=== PATIENT | male | born 1945 | race Caucasian/White ===

== ENCOUNTER 2017-04-19 17:44 | Emergency (ER) | payer MEDICARE ==
[2017-04-19 17:56] VITALS: BP 166/80; PULSE 64; RESP 17; TEMP 96.4
--- NOTE | 2017-04-19 18:06 | ED ---
General Adult HPI - General Chief complaint: ENT Stated complaint: fb in rt ear, from hearing aid Time Seen by Provider: 04/19/17 17:57 Source: patient, RN notes reviewed Mode of arrival: ambulatory Limitations: no limitations - History of Present Illness Initial comments: Patient is a 72-year-old male who presents emergency room today with a chief complaint of part of hearing aid stuck in his right ear canal. Patient does admit that this occurred 2 days ago and got his hearing aid. He does admit that he with the manager outpatient earlier today who was unable to remove it. Patient denies any other complaints or symptoms. Patient denies any recent fever , chills, shortness of breath, chest pain, back pain, abdominal pain, nausea or vomiting, numbness or tingling, dysuria or hematuria, constipation or diarrhea, headaches or visual changes, or any other complaints. - Related Data Home Medications Medication Instructions Recorded Confirmed Aspirin 81 mg PO DAILY 08/04/16 08/04/16 Calcium Polycarbophil [Fibercon] 625 mg PO BID 08/04/16 08/04/16 Losartan/Hydrochlorothiazide 1 tab PO DAILY 08/04/16 08/04/16 [Losartan-Hctz 100-12.5 mg Tab] Multivitamin [Men's Multi-Vitamin] 1 tab PO DAILY 08/04/16 08/04/16 [place]-3 Fatty Acids/Fish Oil [Fish 1 cap PO BID 08/04/16 08/04/16 Oil 1,000 mg Softgel] Simvastatin [Zocor] 80 mg PO HS 08/04/16 08/04/16 Allergies Allergy/AdvReac Type Severity Reaction Status Date / Time No Known Allergies Allergy Verified 08/04/16 07:37 Review of Systems ROS Statement: Those systems with pertinent positive or pertinent negative responses have been documented in the HPI. ROS Other: All systems not noted in ROS Statement are negative. Past Medical History Past Medical History: Hyperlipidemia, Hypertension History of Any Multi-Drug Resistant Organisms: None Reported Past Surgical History: Adenoidectomy, Heart Catheterization, Tonsillectomy Past Psychological History: No Psychological Hx Reported Smoking Status: Never smoker Past Alcohol Use History: Occasional Past Drug Use History: None Reported General Exam - General Exam Comments Initial Comments: General: The patient is awake and alert, in no distress, and does not appear acutely ill. Eye: Pupils are equal, round and reactive to light, extra-ocular movements are intact. No nystagmus. There is normal conjunctiva bilaterally. No signs of icterus. Ears, nose, mouth and throat: There are moist mucous membranes and no oral lesions. Unable to visualize the right TM due to foreign body Neck: The neck is supple, there is no tenderness or JVD. Cardiovascular: There is a regular rate and rhythm. No murmur, rub or gallop is appreciated. Respiratory: Lungs are clear to auscultation, respirations are non-labored, breath sounds are equal. No wheezes, stridor, rales, or rhonchi. Musculoskeletal: Normal ROM, no tenderness. Strength 5/5. Sensation intact. Pulses equal bilaterally 2+. Neurological: A&O x 3. CN II-XII intact, There are no obvious motor or sensory deficits. Coordination appears grossly intact. Speech is normal. Skin: Skin is warm and dry and no rashes or lesions are noted. Psychiatric: Cooperative, appropriate mood & affect, normal judgment. Limitations: no limitations Course Vital Signs 04/19/17 17:52 Temperature 96.4 F L Pulse Rate 64 Respiratory 17 Rate Blood Pressure 166/80 O2 Sat by Pulse 97 Oximetry Procedures - Procedures Initial comment: Alligator forcep was used to remove foreign body. Right TM checked afterwards showing clear tympanic membrane. Disposition Clinical Impression: Ear foreign body Disposition: HOME SELF-CARE Condition: Good Instructions: Ear Foreign Body (ED) Additional Instructions: Please return to emergency room if the symptoms increase or worsen or for any other concerns. Referrals: Anant Gilbert MD [Primary Care Provider] - 1-2 days Time of Disposition: 18:05
== END 2017-04-19 18:09 | disposition home or self-care (01) ==
LOC: EC 17:44
DX: T16.1XXA Foreign body in right ear, initial encounter (principal); X58.XXXA Exposure to other specified factors, initial encounter; Z79.82 Long term (current) use of aspirin; Z79.899 Other long term (current) drug therapy
CPT/HCPCS: 69200; 99282

== ENCOUNTER 2018-01-10 09:39 | Emergency (ER) | payer MEDICARE ==
[2018-01-10] MEDS ORDERED: ONDANSETRON 4 MG/2 ML VIAL IVP STA (10:11)
[2018-01-10] MEDS ORDERED: MECLIZINE 12.5 MG TAB PO STA (10:11)
[2018-01-10] MEDS ORDERED: SODIUM CHLORIDE 0.9% 1,000 ML IV ONE (10:11)
--- NOTE | 2018-01-10 10:23 | ED ---
Nausea/Vomiting/Diarrhea HPI - General Chief complaint: Nausea/Vomiting/Diarrhea Stated complaint: Vomiting & Dizziness Time Seen by Provider: 01/10/18 10:02 Source: patient Mode of arrival: wheelchair Limitations: no limitations - History of Present Illness Initial comments: This is a 72-year-old male who presents emergency department for dizziness, nausea, and vomiting. He states that the symptoms started yesterday and it persisted into today. He states that the dizziness is what makes him nauseated. He describes it as a room spinning sensation. It is only present when he sits up or stands up. He states that when he is lying down he feels like he is okay. He states that when the dizziness is occurring anytime he drinks he vomits. He feels like he is dehydrated. He denies any focal weakness in an extremity. No incoordination. Patient states he's been ambulating normally. No difficulty with speaking or swallowing. Denies any chest pain or shortness of breath. No history of vertigo in the past. No other acute complaints. - Related Data Home Medications Medication Instructions Recorded Confirmed Aspirin 81 mg PO DAILY 08/04/16 01/10/18 Losartan/Hydrochlorothiazide 1 tab PO DAILY 08/04/16 01/10/18 [Losartan-Hctz 100-12.5 mg Tab] Multivitamin [Men's Multi-Vitamin] 1 tab PO DAILY 08/04/16 01/10/18 [place]-3 Fatty Acids/Fish Oil [Fish 1 cap PO BID 08/04/16 01/10/18 Oil 1,000 mg Softgel] Simvastatin [Zocor] 80 mg PO HS 08/04/16 01/10/18 Previous Rx's Medication Instructions Recorded Meclizine [Antivert] 25 mg PO TID PRN #20 tab 01/10/18 Ondansetron Odt [Zofran Odt] 4 mg PO Q8HR PRN #15 tab 01/10/18 Allergies Allergy/AdvReac Type Severity Reaction Status Date / Time No Known Allergies Allergy Verified 01/10/18 10:28 Review of Systems ROS Statement: Those systems with pertinent positive or pertinent negative responses have been documented in the HPI. ROS Other: All systems not noted in ROS Statement are negative. Past Medical History Past Medical History: Hyperlipidemia, Hypertension History of Any Multi-Drug Resistant Organisms: None Reported Past Surgical History: Adenoidectomy, Heart Catheterization, Tonsillectomy Past Psychological History: No Psychological Hx Reported Smoking Status: Never smoker Past Alcohol Use History: Occasional Past Drug Use History: None Reported General Exam - General Exam Comments Initial Comments: Constitutional: Awake alert Appears comfortable Head: Normocephalic atraumatic Eyes: no conjunctival injection No scleral icterus EOMI, there is a left beating nystagmus with rightward gaze, pupils are 3 mm and reactive bilaterally ENT: TMs clear bilaterally, oropharynx is clear and normal Neck: No JVD Supple Heart: Regular rate rhythm normal S1-S2 no murmurs Lungs: Clear to auscultation bilaterally No wheezing No rales Abdomen: Soft nondistended nontender Extremities: Non edematous DP pulses intact Radial pulses intact Neuro: A&Ox3, cranial nerves II through XII are grossly intact, 5 out of 5 strength in upper and lower extremities bilaterally, normal finger to nose and heel to rai testing, no ataxia No focal neurologic deficits Psych: Appropriate mood and affect Limitations: no limitations Course Vital Signs 01/10/18 01/10/18 09:45 12:10 Temperature 97.1 F L Pulse Rate 76 65 Respiratory 18 16 Rate Blood Pressure 187/86 145/74 O2 Sat by Pulse 98 97 Oximetry - Reevaluation(s) Reevaluation #1: 01/10/18 11:46 EKG showing normal sinus rhythm with a rate of 62. No abnormal ST segment changes or T-wave inversion. QTC is 428. There is a first-degree AV block. No ectopy. Medical Decision Making - Medical Decision Making Is a 72-year-old male who came in for dizziness nausea and vomiting. The patient was found have nystagmus on examination when he was dizzy. Blood work was reviewed and unremarkable. No focal neurologic findings on exam. At this time I feel that the patient's symptoms are likely from BPPV. Patient was treated with Antivert and Ativan and IV fluids and had improvement in his symptoms. I told him that I'm going to send him home with Antivert and Zofran. Can follow-up with ENT if he has persistent symptoms or return emergency Department if she develops any focal neurologic symptoms. All questions answered. - Lab Data Result diagrams: 01/10/18 10:43 01/10/18 10:43 Lab Results 01/10/18 01/10/18 Range/Units 10:43 10:43 WBC 10.1 (3.8-10.6) k/uL RBC 5.28 (4.30-5.90) m/uL Hgb 15.8 (13.0-17.5) gm/dL Hct 44.7 (39.0-53.0) % MCV 84.6 (80.0-100.0) fL MCH 29.9 (25.0-35.0) pg MCHC 35.4 (31.0-37.0) g/dL RDW 12.7 (11.5-15.5) % Plt Count 201 (150-450) k/uL Neutrophils % 80 % Lymphocytes % 13 % Monocytes % 5 % Eosinophils % 1 % Basophils % 0 % Neutrophils # 8.1 H (1.3-7.7) k/uL Lymphocytes # 1.3 (1.0-4.8) k/uL Monocytes # 0.5 (0-1.0) k/uL Eosinophils # 0.1 (0-0.7) k/uL Basophils # 0.0 (0-0.2) k/uL Sodium 142 (137-145) mmol/L Potassium 3.3 L (3.5-5.1) mmol/L Chloride 103 (98-107) mmol/L Carbon Dioxide 27 (22-30) mmol/L Anion Gap 12 mmol/L BUN 21 H (9-20) mg/dL Creatinine 1.07 (0.66-1.25) mg/dL Est GFR (CKD-EPI)AfAm 79 (>60 ml/min/1.73 sqM) Est GFR (CKD-EPI)NonAf 69 (>60 ml/min/1.73 sqM) Glucose 127 H (74-99) mg/dL Calcium 9.9 (8.4-10.2) mg/dL Total Bilirubin 1.5 H (0.2-1.3) mg/dL AST 22 (17-59) U/L ALT 30 (21-72) U/L Alkaline Phosphatase 67 (38-126) U/L Total Protein 6.2 L (6.3-8.2) g/dL Albumin 3.8 (3.5-5.0) g/dL Disposition Clinical Impression: BPPV (benign paroxysmal positional vertigo) Disposition: HOME SELF-CARE Condition: Stable Instructions: Vertigo (ED), Acute Nausea and Vomiting (ED) Prescriptions: Meclizine [Antivert] 25 mg PO TID PRN #20 tab PRN Reason: Dizziness Ondansetron Odt [Zofran Odt] 4 mg PO Q8HR PRN #15 tab PRN Reason: Nausea Referrals: Anant Gilbert MD [Primary Care Provider] - 1-2 days Iam Maldonado MD [STAFF PHYSICIAN] - 1-2 days
[2018-01-10 10:54] LABS: Basophils % (A) 0 %; Eosinophils # (A) 0.1 k/uL (0-0.7); Eosinophils % (A) 1 %; HCT 44.7 % (39.0-53.0); HGB 15.8 gm/dL (13.0-17.5); Lymphocytes # (A) 1.3 k/uL (1.0-4.8); Lymphocytes % (A) 13 %; MCH 29.9 pg (25.0-35.0); MCHC 35.4 g/dL (31.0-37.0); MCV 84.6 fL (80.0-100.0); Mean Platelet Volume 7.1; Monocytes # (A) 0.5 k/uL (0-1.0); Monocytes % (A) 5 %; Neutrophils # (A) 8.1 k/uL (1.3-7.7); Neutrophils % (A) 80 %; Platelet Count 201 k/uL (150-450); RBC 5.28 m/uL (4.30-5.90); RDW 12.7 % (11.5-15.5); WBC 10.1 k/uL (3.8-10.6)
[2018-01-10 11:02] LABS: Albumin 3.8 g/dL (3.5-5.0); Calcium 9.9 mg/dL (8.4-10.2); Potassium 3.3 mmol/L (3.5-5.1); Total Bilirubin 1.5 mg/dL (0.2-1.3); Total Protein 6.2 g/dL (6.3-8.2)
[2018-01-10] MEDS ORDERED: LORazepam 2 MG/ML INJ IV STA (11:41)
[2018-01-10 12:11] VITALS: BP 145/74; PULSE 65; RESP 16
[2018-01-10 13:07] VITALS: TEMP 97.9
== END 2018-01-10 12:55 | disposition home or self-care (01) ==
LOC: EC 09:39
DX: H81.10 Benign paroxysmal vertigo, unspecified ear (principal); E78.5 Hyperlipidemia, unspecified; I10 Essential (primary) hypertension; Z95.5 Presence of coronary angioplasty implant and graft; Z79.82 Long term (current) use of aspirin; Z79.899 Other long term (current) drug therapy
CPT/HCPCS: 99284; 96374; 96375; 36415; 93005; 80053; 85025; J2060; J2405

== ENCOUNTER → 2018-09-11 | Outpatient (CLI) | payer MEDICARE ==
[2018-09-11 11:51] LABS: Albumin 4.1 g/dL (3.80-4.90); Albumin/Globulin Ratio 3.15 (1.20-2.10); Anion Gap 6.9 mmol/L (4.00-12.00); Calcium 9.2 mg/dL (8.7-10.3); Carbon Dioxide 30.1 mmol/L (21.6-31.8); Globulin 1.3 g/dL (2.1-3.7); LDL Cholesterol,Calculated 60.6 mg/dL (0.0-131.0); Potassium 3.6 mmol/L (3.5-5.5); Total Bilirubin 0.9 mg/dL (0.3-1.2); Total Protein 5.4 g/dL (6.2-8.2); VLDL Calculation 14.4 mg/dL (5.00-40.00)
== END | disposition home or self-care (01) ==
LOC: LABWHC1 06:40
PROVIDERS: ATTEND Internal Medicine Cardiovascular Disease
DX: E78.5 Hyperlipidemia, unspecified (principal); I10 Essential (primary) hypertension
CPT/HCPCS: 36415; 80053; 80061

== ENCOUNTER → 2019-11-26 | Outpatient (CLI) | payer MEDICARE ==
[2019-11-26 15:51] LABS: HCT 44.5 % (39.0-53.0); MCH 29.9 pg (25.0-35.0); MCHC 33.8 g/dL (31.0-37.0); MCV 88.5 fL (80.0-100.0); Mean Platelet Volume 7.5; Platelet Count 216 k/uL (150-450); RBC 5.03 m/uL (4.30-5.90); RDW 12.9 % (11.5-15.5); WBC 10.5 k/uL (3.8-10.6)
[2019-11-26 15:55] LABS: Partial Thromboplastin Time 23.3 sec (22.0-30.0); Prothrombin Time 10.3 sec (9.0-12.0)
[2019-11-26 16:02] LABS: Albumin 4.2 g/dL (3.5-5.0); Calcium 10.1 mg/dL (8.4-10.2); Potassium 3.5 mmol/L (3.5-5.1); Total Protein 6.5 g/dL (6.3-8.2)
[2019-11-26 16:56] LABS: Appearance,Urine Clear (Clear); Color,Urine Yellow
[2019-11-26 16:57] LABS: Bilirubin,Urine Negative (Negative); Blood,Urine Negative (Negative); Glucose,Urine (UA) Negative (Negative); Ketones,Urine Negative (Negative); Leukocyte Esterase,Urine Negative (Negative); Nitrite,Urine Negative (Negative); Protein,Urine Negative (Negative); Urobilinogen,Urine <2.0 mg/dL (<2.0)
== END ==
LOC: LABPAT 14:35
PROVIDERS: ATTEND Orthopaedic Surgery Sports Medicine
DX: Z01.812 Encounter for preprocedural laboratory examination (principal); M17.11 Unilateral primary osteoarthritis, right knee; Z51.81 Encounter for therapeutic drug level monitoring
CPT/HCPCS: 36415; 80053; 81003; 85027; 85610; 85730; 87070

== ENCOUNTER 2019-12-17 10:57 | Observation (INO) | payer MEDICARE ==
[2019-12-13 17:52] VITALS: BMI 26.5
[2019-12-18 15:24] VITALS: BP 132/77; PULSE 76; RESP 16; TEMP 100.2
== END 2019-12-18 16:50 | disposition home health service (06) ==
LOC: OR 10:57 → EDSTATUS 12:30 → 4SSUR 15:47 → OR 12-18 11:19 → 4SSUR 12-18 11:21
PROVIDERS: ADMIT Orthopaedic Surgery Sports Medicine; ATTEND Orthopaedic Surgery Sports Medicine
DX: M17.11 Unilateral primary osteoarthritis, right knee (principal); E78.5 Hyperlipidemia, unspecified; H91.90 Unspecified hearing loss, unspecified ear; I12.9 Hypertensive chronic kidney disease with stage 1 through stage 4 chronic kidney disease, or unspecified chronic kidney disease; N18.2 Chronic kidney disease, stage 2 (mild); N40.0 Benign prostatic hyperplasia without lower urinary tract symptoms; K21.9 Gastro-esophageal reflux disease without esophagitis; Z79.899 Other long term (current) drug therapy; Z79.1 Long term (current) use of non-steroidal anti-inflammatories (NSAID); Z97.3 Presence of spectacles and contact lenses; Z98.890 Other specified postprocedural states; Z79.891 Long term (current) use of opiate analgesic; Z87.898 Personal history of other specified conditions; Z79.82 Long term (current) use of aspirin
CPT/HCPCS: 97161; 64448; 76942; 85025; 88300; 73560; 27447; G0378; C1776; C1713; J2250; J0171; J1200; J1100; J0690 ×2; J2405; J3010; J1885; J2795 ×2; J2704; J0735

== ENCOUNTER → 2020-09-08 | Outpatient (CLI) | payer MEDICARE ==
[2020-09-08 15:55] LABS: Basophils % (A) 0 %; Eosinophils # (A) 0.1 k/uL (0-0.7); Eosinophils % (A) 1 %; HGB 14.3 gm/dL (13.0-17.5); Lymphocytes # (A) 2.7 k/uL (1.0-4.8); Lymphocytes % (A) 27 %; MCH 29.8 pg (25.0-35.0); MCHC 32.6 g/dL (31.0-37.0); MCV 91.5 fL (80.0-100.0); Mean Platelet Volume 6.9; Monocytes # (A) 0.5 k/uL (0-1.0); Monocytes % (A) 5 %; Neutrophils # (A) 6.4 k/uL (1.3-7.7); Neutrophils % (A) 65 %; Platelet Count 240 k/uL (150-450); RBC 4.82 m/uL (4.30-5.90); RDW 13.2 % (11.5-15.5); WBC 9.9 k/uL (3.8-10.6)
[2020-09-08 16:02] LABS: Calcium 9.9 mg/dL (8.4-10.2); Potassium 3.7 mmol/L (3.5-5.1)
== END | disposition home or self-care (01) ==
LOC: LABPAT 14:08
PROVIDERS: ATTEND Urology
DX: Z01.818 Encounter for other preprocedural examination (principal); C61 Malignant neoplasm of prostate; R35.0 Frequency of micturition
CPT/HCPCS: 36415; 80048; 85025; 87086

== ENCOUNTER 2020-09-17 08:03 | Day surgery (SDC) | payer MEDICARE ==
--- NOTE | 2020-09-14 20:15 | P.GSHP ---
History of Present Illness H&P Date: 09/14/20 Chief Complaint: Prostate cancer The patient is a 75-year-old male who was originally diagnosed with prostate cancer in 2013. His PSA had been 6.25 in 08/21 and 6.89 in. TRUS with biopsies in 03/22 showed a 50 cc prostate and a [place] 3+3 = 6 cancer was noted in the right base, right lateral base and right and left apex. The patient had a favorable Prolaris score and elected for active surveillance. PSA was 5.6 in 07/22, 6.3 in 01/21, 7.7 in 11/24, 7.9 in 05/24, 9.5 in 12/23 and 7.3 in 10/26. Repeat biopsies had been reviewed with the patient but he declined and did not return for follow-up until 11/28 when he was noted to have a PSA of 9.3. The patient was scheduled to undergo right total knee arthroplasty in 12/26 and deferred any further evaluation until 05/28 when his PSA was 9.7. TRUS with biopsies for restaging was performed on 07/27/2020. The prostate volume was 73 cc. [place] 3+4 = 7 was noted in 6 out of 6 biopsies from the right lobe, with 99 and 95% positive cores in the right lateral base and right base. 3+4 = 7 cancer was also noted in the left lateral base. Decipher score was 0.8. Treatment options were reviewed and the patient has elected to proceed with 6 months of androgen deprivation therapy followed by external beam radiation therapy. He was started on Firmagon on 08/06/2020. He is admitted at this time for the purpose of SpaceOar implant to reduce the potential for rectal toxicity. The patient describes a good urinary flow and usually voids every 4-5 hours during the day and only occasionally at night. She has no history of urinary frequency, urgency or hematuria. Preoperative urine culture showed no growth. - Constitutional Constitutional: Denies chills, Denies fever - EENT Ears, nose, mouth and throat: Denies vertigo - Cardiovascular Cardiovascular: Reports high blood pressure, Denies chest pain, Denies edema, Denies irregular heart beat, Denies palpitations, Denies shortness of breath - Respiratory Respiratory: Denies cough, Denies wheezing - Gastrointestinal Gastrointestinal: Denies abdominal pain, Denies constipation - Genitourinary (Male) Genitourinary: Reports as per HPI Past Medical History Past Medical History: Hyperlipidemia, Hypertension Additional Past Medical History / Comment(s): Skin cancer. Hearing aids. BPH. History of Any Multi-Drug Resistant Organisms: None Reported Past Surgical History: Adenoidectomy, Heart Catheterization, Tonsillectomy Additional Past Surgical History / Comment(s): Colonoscopy, Right total knee arthroplasty 12/2019 Past Anesthesia/Blood Transfusion Reactions: No Reported Reaction, Motion Sickness Past Psychological History: No Psychological Hx Reported Past Alcohol Use History: Occasional Past Drug Use History: None Reported - Past Family History Father Family Medical History: Cancer Mother Family Medical History: Myocardial Infarction ([place]) Medications and Allergies Home Medications Medication Instructions Recorded Confirmed Type Aspirin 81 mg PO HS 08/04/16 12/17/19 History Multivitamin [Men's Multi-Vitamin] 1 tab PO DAILY 08/04/16 12/17/19 History [place]-3 Fatty Acids/Fish Oil [Fish 1 cap PO BID 08/04/16 12/17/19 History Oil 1,000 mg Softgel] Atorvastatin [Lipitor] 80 mg PO HS 12/13/19 12/17/19 History Losartan/Hydrochlorothiazide 1 tab PO DAILY 12/13/19 12/17/19 History [Losartan-Hctz 100-25 mg Tab] Aspirin 325 mg PO BID #60 tab 12/18/19 Rx Docusate [Colace] 100 mg PO BID #60 capsule 12/18/19 Rx HYDROcodone/APAP 7.5-325MG [[place] 1 - 2 each PO Q6HR PRN #56 tab 12/18/19 Rx 7.5-325] Allergies Allergy/AdvReac Type Severity Reaction Status Date / Time No Known Allergies Allergy Verified 12/17/19 11:12 Surgical - Exam - General well developed, well nourished, no distress - ENT no hearing loss - Neck no masses, no lymphadectomy - Respiratory normal respiratory effort - Abdomen Abdomen: soft, non tender, no organomegaly Hernia: none - Genitourinary normal penis with no external lesions, testicles non-tender - Rectum Rectum: normal sphincter tone, other (Prostate is 2+ enlarged and benign to palpation) Assessment and Plan (1) Prostate cancer Narrative/Plan: The patient will undergo SpaceOar placement under general anesthesia performed by . He is aware of the risks which include anesthesia, bleeding, infection and rectal injury. He is also aware that placement of the implant is no guarantee that rectal toxicity from radiation therapy will not occur. He will begin his external beam radiation therapy later in the 09/27. The patient will receive a 4 month Lupron injection in early 10/2020. Status: Acute Code(s): C61 - MALIGNANT NEOPLASM OF PROSTATE SNOMED Code(s): 859639246
[2020-09-15 13:39] VITALS: BMI 23.9
[~2020-09-17 08:03] MED LIST: DEXAMETHASONE SOD PHOSPHATE 4 MG/ML 1 ML VIAL IV ONE; HYDROmorphone 0.5 MG/0.5 ML SYRINGE IVP PRN; LACTATED RINGERS 1,000 ML IV SCH; LIDOCAINE 1% (10MG/ML) FOR IV START INTRADERMA PRN; ONDANSETRON 4 MG/2 ML VIAL IVP ONE
[2020-09-17 08:23] VITALS: RESP 16; TEMP 98.2
[2020-09-17] MEDS ORDERED: LIDOCAINE 2% INJ 20 MG/ML SQ ONE ×3 (09:40→10:11)
[2020-09-17] MEDS ORDERED: PROPOFOL 10 MG/ML 20 ML VIAL IV ONE (09:48)
[2020-09-17] MEDS ORDERED: MIDAZOLAM 2 MG/2 ML VIAL ONE (09:48)
[2020-09-17] MEDS ORDERED: KETAMINE 10 MG/ML 20 ML VIAL ONE (09:48)
[2020-09-17] MEDS ORDERED: GLYCOPYRROLATE 0.2 MG/ML 2 ML VIAL ONE (09:48)
[2020-09-17] MEDS ORDERED: LIDOCAINE 1% INJ 10MG/ML (20 ML MDV) ONE (09:48)
[2020-09-17] MEDS ORDERED: fentaNYL (PF) 50 MCG/ML 2 ML AMP ONE (09:48)
--- NOTE | 2020-09-17 10:52 | P.OP ---
Date of Procedure: 09/17/20 Preoperative Diagnosis: Adenocarcinoma of the prostate Postoperative Diagnosis: Same Procedure(s) Performed: SpaceOAR Implant Anesthesia: MAC Surgeon: Kenji Rodriguez Estimated Blood Loss (ml): 5 IV fluids (ml): 100 Pathology: none sent Condition: stable Disposition: PACU Indications for Procedure: The patient is a 75-year-old male who was originally diagnosed with prostate cancer in 2013. His PSA had been 6.25 in 08/21 and 6.89 in. TRUS with biopsies in 03/22 showed a 50 cc prostate and a [place] 3+3 = 6 cancer was noted in the right base, right lateral base and right and left apex. The patient had a favorable Prolaris score and elected for active surveillance. PSA was 5.6 in 07/22, 6.3 in 01/21, 7.7 in 11/24, 7.9 in 05/24, 9.5 in 12/23 and 7.3 in 10/26. Repeat biopsies had been reviewed with the patient but he declined and did not return for follow-up until 11/28 when he was noted to have a PSA of 9.3. The patient was scheduled to undergo right total knee arthroplasty in 12/26 and deferred any further evaluation until 05/28 when his PSA was 9.7. TRUS with biopsies for restaging was performed on 07/27/2020. The prostate volume was 73 cc. [place] 3+4 = 7 was noted in 6 out of 6 biopsies from the right lobe, with 99 and 95% positive cores in the right lateral base and right base. 3+4 = 7 cancer was also noted in the left lateral base. Decipher score was 0.8. Treatment options were reviewed and the patient has elected to proceed with 6 months of androgen deprivation therapy followed by external beam radiation therapy. He was started on Firmagon on 08/06/2020. He is admitted at this time for the purpose of SpaceOar implant to reduce the potential for rectal toxicity. Operative Findings: 8 mm separation created between prostate and rectum. Description of Procedure: The patient was taken to the operating room and placed in the dorsolithotomy position, with his legs supported in Mingo stirrups. The external genitalia was prepped and draped sterilely. The Bruel and Kjaer transrectal ultrasound probe was placed intrarectally. The prostate was imaged. The probe was then placed within the stabilizing stand. A spinal needle was advanced under ultrasonic guidance to the level of the urogenital diaphragm, and lidocaine was used to infiltrate the tissues as the needle was withdrawn. Next, the SpaceOAR needle was passed through the midline of the perineum, 1-2 cm anterior to the anal opening. The needle was slowly advanced under ultrasonic guidance until the needle tip was located within the fat plane between the prostate and rectum, at the level of the mid prostate gland. The needle was confirmed to be midline on the axial imaging. A small amount of normal saline was injected for hydrodissection. Next, the SpaceOAR components were mixed and loaded into the Y connector per protocol. The Y connector was then connected to the needle, and the components were injected slowly over a course of approximately 12 seconds. A total of 10 ml was injected. 8 mm distance was created between the prostate and rectum, as desired. It should be noted that at no point was there any concern of rectal perforation. The needle was withdrawn, as well as the tra nsrectal ultrasound probe, and the procedure was terminated. The patient tolerated the procedure well and was taken to the recovery room in stable condition.
[2020-09-17 10:54] VITALS: BP 171/90; PULSE 71
== END 2020-09-17 11:22 | disposition home or self-care (01) ==
LOC: OR 08:03
PROVIDERS: ATTEND Urology
DX: C61 Malignant neoplasm of prostate (principal); I10 Essential (primary) hypertension; E78.5 Hyperlipidemia, unspecified; Z79.82 Long term (current) use of aspirin; Z79.899 Other long term (current) drug therapy; Z97.4 Presence of external hearing-aid; Z85.828 Personal history of other malignant neoplasm of skin; Z80.9 Family history of malignant neoplasm, unspecified; Z82.49 Family history of ischemic heart disease and other diseases of the circulatory system
CPT/HCPCS: 55874; J2001 ×2; J2250; J1100; J2405; J0690; J3010; J2704

== ENCOUNTER → 2021-06-18 | Outpatient (CLI) | payer MEDICARE | END | disposition home or self-care (01) | LOC: LABWHC1 13:31 | PROVIDERS: ATTEND Radiology Radiation Oncology | DX: C61 Malignant neoplasm of prostate (principal); Z79.818 Long term (current) use of other agents affecting estrogen receptors and estrogen levels | CPT/HCPCS: 36415; 84153 ==

== ENCOUNTER → 2022-02-02 | Outpatient (CLI) | payer MEDICARE ==
[2022-02-02 10:51] LABS: LDL Cholesterol,Calculated 59.9 mg/dL (0.0-131.0)
[2022-02-02 11:48] LABS: ALT 17 U/L (10-49); AST 23 U/L (14-35); Albumin 4.1 g/dL (3.8-4.9); Albumin/Globulin Ratio 1.86 (1.60-3.17); Alkaline Phosphatase 80 U/L (41-126); Bilirubin, Conjugated <0.20 mg/dL (0.20-0.40); Globulin 2.2 g/dL (1.6-3.3); Total Protein 6.3 g/dL (6.2-8.2)
== END | disposition home or self-care (01) ==
LOC: LABWHC1 07:08
PROVIDERS: ATTEND Internal Medicine Cardiovascular Disease
DX: Z00.00 Encounter for general adult medical examination without abnormal findings (principal); E78.5 Hyperlipidemia, unspecified
CPT/HCPCS: 36415; 80061; 80076

== ENCOUNTER → 2022-07-05 | Outpatient (CLI) | payer MEDICARE | END | disposition home or self-care (01) | LOC: LABWHC1 13:52 | PROVIDERS: ATTEND Urology | DX: C61 Malignant neoplasm of prostate (principal); Z92.3 Personal history of irradiation; Z79.818 Long term (current) use of other agents affecting estrogen receptors and estrogen levels | CPT/HCPCS: 36415; 84153 ==

== ENCOUNTER → 2023-01-27 | Outpatient (CLI) | payer MEDICARE ==
--- NOTE | 2023-01-27 14:28 | US ---
EXAMINATION TYPE: US kidneys/renal and bladder DATE OF EXAM: 01/27/2023 COMPARISON: NONE CLINICAL INDICATION: Male, 77 years old with history of R31.0 GROSS HEMATURIA; microscopic hematuria EXAM MEASUREMENTS: Right Kidney: 9.3 x 4.7 x 5.0 cm Left Kidney: 11.2 x 5.1 x 6.0 cm Right Kidney: 2 anechoic areas noted = 2.5 x 2.7 x 2.3cm and 2.1 x 2.2 x 1.9cm Left Kidney: anechoic area = 6.3 x 5.1 x 6.3cm Bladder: appears wnl Bilateral Jets seen: no IMPRESSION: 1. Large simple appearing left renal cyst. 2. Smaller right renal cysts.
== END | disposition home or self-care (01) ==
LOC: RADUSWWP 12:49
PROVIDERS: ATTEND Urology
DX: N28.1 Cyst of kidney, acquired (principal)
CPT/HCPCS: 76770

== ENCOUNTER → 2023-10-24 | Outpatient (CLI) | payer MEDICARE ==
[2023-10-24 14:55] LABS: HCT 44.3 % (39.6-50.0); HGB 14.9 g/dL (13.0-17.0); MCHC 33.6 g/dL (32.0-37.0); MCV 92.3 FL (80.0-97.0); Mean Platelet Volume 10.5 FL (9.5-12.2); NRBC Per 100 WBC 0 X 10*3/uL (0.00-0.01); Platelet Count 180 X 10*3/uL (140-440); RDW 13.1 % (11.5-14.5); WBC 14.77 X 10*3/uL (4.50-10.00)
[2023-10-24 15:15] LABS: BUN/Creat Ratio 12.38 Ratio (12.00-20.00); Blood Urea Nitrogen 19.8 mg/dL (9.0-27.0); Calcium 9.9 mg/dL (8.7-10.3); Carbon Dioxide 27.3 mmol/L (21.6-31.8); Chloride 108 mmol/L (96-109); Glucose 102 mg/dL (70-110); Phosphorus 2.6 mg/dL (2.4-5.1); Potassium 3.9 mmol/L (3.5-5.5); Sodium 145 mmol/L (135-145)
[2023-10-24 15:32] LABS: Appearance,Urine Clear (Clear); Bilirubin,Urine Negative (Negative); Blood,Urine Negative (Negative); Color,Urine Yellow (Yellow); Ketones,Urine Trace (Negative); Nitrite,Urine Negative (Negative); Specific Gravity,Urine 1.024 (1.001-1.030)
== END | disposition home or self-care (01) ==
LOC: LABWHC1 10:52
PROVIDERS: ATTEND Internal Medicine Nephrology
DX: N39.0 Urinary tract infection, site not specified (principal); N18.32 Chronic kidney disease, stage 3b; D63.1 Anemia in chronic kidney disease
CPT/HCPCS: 36415; 80048; 81003; 83735; 84100; 85027

== ENCOUNTER → 2024-02-29 | Outpatient (CLI) | payer MEDICARE ==
[2024-02-29 16:57] LABS: Creatinine,Urine Random 194.1 mg/dL; Protein/Creatinine Ratio,Urine 0.046
[2024-03-01 02:18] LABS: Appearance,Urine Turbid (Clear); Bilirubin,Urine Negative (Negative); Blood,Urine Negative (Negative); Color,Urine Yellow (Yellow); Ketones,Urine Negative (Negative); Nitrite,Urine Negative (Negative); PH, Urine 5.5; Specific Gravity,Urine 1.022 (1.001-1.030); Urobilinogen,Urine 0.2 E.U./DL
[2024-03-01 02:20] LABS: Bacteria,Urine None Seen (None Seen)
[2024-03-01 02:34] LABS: ALT 21 U/L (10-49); AST 24 U/L (14-35); Albumin 4.5 g/dL (3.8-4.9); Alkaline Phosphatase 80 U/L (41-126); Calcium 10.1 mg/dL (8.7-10.3); Carbon Dioxide 25.3 mmol/L (21.6-31.8); Chloride 108 mmol/L (96-109); Globulin 1.8 g/dL (1.6-3.3); Glucose 121 mg/dL (70-110); Magnesium 2.2 mg/dL (1.5-2.4); Phosphorus 2.8 mg/dL (2.4-5.1); Sodium 145 mmol/L (135-145); Total Bilirubin 0.8 mg/dL (0.3-1.2); Total Protein 6.3 g/dL (6.2-8.2)
[2024-03-01 02:39] LABS: HCT 41.1 % (39.6-50.0); HGB 13.4 g/dL (13.0-17.0); MCHC 32.6 g/dL (32.0-37.0); MCV 95.1 FL (80.0-97.0); Mean Platelet Volume 10.7 FL (9.5-12.2); NRBC Per 100 WBC 0 X 10*3/uL (0.00-0.01); Platelet Count 199 X 10*3/uL (140-440); RBC 4.32 X 10*6/uL (4.40-5.60); RDW 13.2 % (11.5-14.5); WBC 10.95 X 10*3/uL (4.50-10.00)
== END | disposition home or self-care (01) ==
LOC: LABWHC1 14:53
PROVIDERS: ATTEND Internal Medicine
DX: N18.32 Chronic kidney disease, stage 3b (principal)
CPT/HCPCS: 36415; 80053; 81001; 82043; 82570; 83735; 84100; 84156; 85027

== ENCOUNTER → 2024-08-12 | Outpatient (CLI) | payer MEDICARE | END | disposition home or self-care (01) | LOC: LABWHC1 11:39 | PROVIDERS: ATTEND Radiology Radiation Oncology | DX: Z08 Encounter for follow-up examination after completed treatment for malignant neoplasm (principal); C61 Malignant neoplasm of prostate; Z92.3 Personal history of irradiation; Z79.818 Long term (current) use of other agents affecting estrogen receptors and estrogen levels | CPT/HCPCS: 36415; 84153 ==

== ENCOUNTER 2024-09-04 10:02 | Day surgery (SDC) | payer MEDICARE ==
[~2024-09-04 10:02] MED LIST changes: -DEXAMETHASONE SOD PHOSPHATE 4 MG/ML 1 ML VIAL IV ONE; -HYDROmorphone 0.5 MG/0.5 ML SYRINGE IVP PRN; -LACTATED RINGERS 1,000 ML IV SCH; -ONDANSETRON 4 MG/2 ML VIAL IVP ONE
[2024-09-04] MEDS: IV FLUID CONTINUATION 1,000 ML IV ONE (10:18)
[2024-09-04 10:21] VITALS: RESP 14; TEMP 98.6
[2024-09-04] MEDS: LACTATED RINGERS 1,000 ML IV SCH (10:32)
[2024-09-04] MEDS ORDERED: PROPOFOL 10 MG/ML 20 ML VIAL IV ONE (11:56)
[2024-09-04] MEDS ORDERED: LIDOCAINE 1% INJ 10MG/ML (20 ML MDV) ONE (11:56)
--- NOTE | 2024-09-04 12:09 | P.GSHP ---
History of Present Illness H&P Date: 09/04/24 CHIEF COMPLAINT: Colon screen HISTORY OF PRESENT ILLNESS: The patient is a 79-year-old male who presents for colon screen. Lower endoscopy was offered for further evaluation and management. PAST MEDICAL HISTORY: Please see list. PAST SURGICAL HISTORY: Please see list. MEDICATIONS: Please see list. ALLERGIES: Please see list. SOCIAL HISTORY: No illicit drug use FAMILY HISTORY: No reports of Crohn disease or ulcerative colitis. REVIEW OF ORGAN SYSTEMS: CONSTITUTIONAL: No reports of fevers or chills. PHYSICAL EXAM: VITAL SIGNS: Stable GENERAL: Well-developed pleasant in no acute distress. HEENT: No scleral icterus. Extraocular movements grossly intact. Moist buccal mucosa. NECK: Supple without lymphadenopathy. CHEST: Unlabored respirations. Equal bilateral excursions. CARDIOVASCULAR: Regular rate and rhythm. Distal 2+ pulses. ABDOMEN: Soft, nontender, nondistended. MUSCULOSKELETAL: No clubbing, cyanosis, or edema. ASSESSMENT: 1. Colon screen. PLAN: 1. Recommend proceeding with a lower endoscopy Past Medical History Past Medical History: Cancer, GERD/Reflux, Hearing Disorder / Deafness, Hyperlipidemia, Hypertension, Prostate Disorder Additional Past Medical History / Comment(s): Skin cancer. Hearing aids. BPH. Prostate CA with radiation tx History of Any Multi-Drug Resistant Organisms: None Reported Past Surgical History: Adenoidectomy, Heart Catheterization, Tonsillectomy Additional Past Surgical History / Comment(s): Colonoscopy Past Anesthesia/Blood Transfusion Reactions: No Reported Reaction, Motion Sickness Smoking Status: Never smoker - Past Family History Father Family Medical History: Cancer Mother Family Medical History: Myocardial Infarction ([place]) Medications and Allergies Home Medications Medication Instructions Recorded Confirmed Type Aspirin 81 mg PO DAILY 08/04/16 09/04/24 History Multivitamin [Men's Multi-Vitamin] 1 tab PO DAILY 08/04/16 09/04/24 History [place]-3 Fatty Acids/Fish Oil [Fish 1 cap PO BID 08/04/16 09/04/24 History Oil 1,000 mg Softgel] Losartan Potassium 100 mg PO QAM 09/15/20 09/04/24 History hydroCHLOROthiazide [Hydrodiuril] 25 mg PO QAM 09/15/20 09/04/24 History Atorvastatin [Lipitor] 80 mg PO DAILY 09/02/24 09/04/24 History Lactulose 30 ml PO DIRECTED 09/02/24 09/04/24 History Tamsulosin [Flomax] 0.4 mg PO DAILY 09/02/24 09/04/24 History amLODIPine BESYLATE 5 mg PO BID 09/02/24 09/04/24 History Allergies Allergy/AdvReac Type Severity Reaction Status Date / Time No Known Allergies Allergy Verified 09/04/24 10:18 Surgical - Exam Vital Signs Temp Pulse Resp BP Pulse Ox 98.6 F 64 14 144/80 97 09/04/24 10:20 09/04/24 10:20 09/04/24 10:20 09/04/24 10:20 09/04/24 10:20
[2024-09-04 12:41] VITALS: PULSE 61
[2024-09-04 12:54] VITALS: BP 143/73
--- NOTE | 2024-09-04 13:28 | P.PCN ---
Date of Procedure: 09/04/24 Description of Procedure: PREOPERATIVE DIAGNOSIS: Personal history of colon polyps. History of rectal bleeding. POSTOPERATIVE DIAGNOSIS: Radiation proctitis with arteriovenous malformations Tubular adenoma cecum External hemorrhoids, grade 1. Internal hemorrhoids, grade 1. Sigmoid diverticulosis OPERATION: Colonoscopy to the ileocecal valve and appendiceal orifice. Colonoscopy with argon beam grant administrator ablation of angiodysplasia, rectum Colonoscopy with snare polypectomy at cecum Colonoscopy with cold forceps biopsy at rectum. SURGEON: Genia Sheridan MD. ANESTHESIA: MAC. INDICATIONS: The patient is a 79-year-old male who presents with rectal bleeding history of polyps. Benefits and risks were described and informed consent was obtained. DESCRIPTION OF PROCEDURE: The patient had undergone GoLytely prep. He had been brought into the operating room and laid in the left lateral decubitus position. After adequate intravenous sedation, the rectum was examined with 2% lidocaine jelly. External hemorrhoids were encountered. The rectal tone was within normal limits. No lesions were palpated in the rectal vault. An Olympus colonoscope was advanced until the ileocecal valve and appendiceal orifice were viewed. The prep was fair with visualization of the mucosal folds. At the cecum, colon polyp was identified and resected using snare polypectomy. At 15 cm from the anal verge, multiple arteriovenous malformations suspicious for radiation proctitis was identified consistent with patient's bleed. To address his rectal bleeding, ablation of multiple arteriovenous malformations was performed with straight argon beam grant administrator. Cold forcep biopsy was obtained. Multiple sigmoid scattered diverticulosis was encountered. Retroflexion of the scope demonstrated grade 2 internal hemorrhoids without active bleeding or inflammation. The colon was desufflated. The patient had tolerated the procedure well. Withdrawal time was over 6 minutes. FINDINGS: Aronchick preparation quality scale 2+ (1-5) Internal hemorrhoids, grade 2 External hemorrhoids, grade 2. At the cecum, 5 mm adenoma resected using hot snare polypectomy At 20 cm from the anal verge, features of radiation proctitis identified with cold forcep biopsy obtained Multiple arteriovenous malformations identified ablated using argon beam grant administrator. Sigmoid diverticulosis RECOMMENDATIONS: Repeat colonoscopy 3 years, 2026 Plan - Discharge Summary Discharge Rx Participant: No New Discharge Prescriptions: Continue Aspirin 81 mg PO DAILY Multivitamin [Men's Multi-Vitamin] 1 tab PO DAILY Huggins-3 Fatty Acids/Fish Oil [Fish Oil 1,000 mg Softgel] 1 cap PO BID hydroCHLOROthiazide [Hydrodiuril] 25 mg PO QAM Losartan Potassium 100 mg PO QAM Lactulose 30 ml PO DIRECTED amLODIPine BESYLATE 5 mg PO BID Atorvastatin [Lipitor] 80 mg PO DAILY Tamsulosin [Flomax] 0.4 mg PO DAILY Discharge Medication List Aspirin 81 mg PO DAILY 08/04/16 [History] Multivitamin [Men's Multi-Vitamin] 1 tab PO DAILY 08/04/16 [History] Huggins-3 Fatty Acids/Fish Oil [Fish Oil 1,000 mg Softgel] 1 cap PO BID 08/04/16 [History] Losartan Potassium 100 mg PO QAM 09/15/20 [History] hydroCHLOROthiazide [Hydrodiuril] 25 mg PO QAM 09/15/20 [History] Atorvastatin [Lipitor] 80 mg PO DAILY 09/02/24 [History] Lactulose 30 ml PO DIRECTED 09/02/24 [History] Tamsulosin [Flomax] 0.4 mg PO DAILY 09/02/24 [History] amLODIPine BESYLATE 5 mg PO BID 09/02/24 [History] Follow up Appointment(s)/Referral(s): Genia Sheridan MD [STAFF PHYSICIAN] - 09/17/24 10:30 am Patient Instructions/Handouts: Proctitis (GEN), Colorectal Polyps (GEN), Diverticulosis Diet (GEN) Activity/Diet/Wound Care/Special Instructions: Repeat colonoscopy 3 years, 2026 Discharge Disposition: HOME SELF-CARE
== END 2024-09-04 13:39 | disposition home or self-care (01) ==
LOC: ORWHC2ENDO 10:02
PROVIDERS: ATTEND Surgery Plastic and Reconstructive Surgery
DX: Z12.11 Encounter for screening for malignant neoplasm of colon (principal); K55.21 Angiodysplasia of colon with hemorrhage; K62.7 Radiation proctitis; K64.1 Second degree hemorrhoids; K64.4 Residual hemorrhoidal skin tags; D12.0 Benign neoplasm of cecum; K57.30 Diverticulosis of large intestine without perforation or abscess without bleeding; I10 Essential (primary) hypertension; E78.5 Hyperlipidemia, unspecified; N40.0 Benign prostatic hyperplasia without lower urinary tract symptoms; K21.9 Gastro-esophageal reflux disease without esophagitis; Z79.82 Long term (current) use of aspirin; Z79.899 Other long term (current) drug therapy; Z86.0100 Personal history of colon polyps, unspecified; Z85.46 Personal history of malignant neoplasm of prostate; Y84.2 Radiological procedure and radiotherapy as the cause of abnormal reaction of the patient, or of later complication, without mention of misadventure at the time of the procedure
CPT/HCPCS: 88305; 45380; 45385; 45388; J2003; J2704

== ENCOUNTER → 2024-09-11 | Outpatient (CLI) | payer MEDICARE ==
[2024-09-11 16:08] LABS: ALT 19 U/L (10-49); AST 20 U/L (14-35); Chol/HDL Ratio 2.62 Ratio; LDL Cholesterol,Calculated 60.2 mg/dL (0.0-131.0)
== END | disposition home or self-care (01) ==
LOC: LABWHC1 08:40
PROVIDERS: ATTEND Internal Medicine Cardiovascular Disease
DX: E78.2 Mixed hyperlipidemia (principal)
CPT/HCPCS: 36415; 80061; 84450; 84460

== ENCOUNTER → 2025-03-18 | Outpatient (CLI) | payer MEDICARE | END | disposition home or self-care (01) | LOC: LABWHC1 07:48 | PROVIDERS: ATTEND Urology | DX: C61 Malignant neoplasm of prostate (principal) | CPT/HCPCS: 36415; 84153 ==